=== PATIENT | male | born 1995 | race American Indian/Alaskan Native ===

== ENCOUNTER 2024-11-01 17:19 | Emergency (ER) | payer BC, MEDICAID ==
[~2024-11-01] VITALS: Ht 177.8 cm; Wt 114.2 kg
[2024-11-01 17:22] VITALS: BP 138/102; PULSE 79; RESP 16; TEMP 98.2; O2SAT 97
[2024-11-01] MEDS ORDERED: IBUP-1984 PO (19:29)
[2024-11-01] MEDS ORDERED: LIDO700A32 TD (19:29)
== END 2024-11-01 19:42 | disposition home or self-care (01) ==
LOC: ER 17:20
DX: M25.511 Pain in right shoulder (principal); Z79.1 Long term (current) use of non-steroidal anti-inflammatories (NSAID); Z79.899 Other long term (current) drug therapy
CPT/HCPCS: 73030; 99283; A4565